=== PATIENT | male | born 1965 | race Caucasian/White ===

== ENCOUNTER 2017-03-25 14:07 | Emergency (ER) | payer MEDICARE, OTHER ==
[~2017-03-25] VITALS: Ht 172.7 cm; Wt 65.0 kg
[~2017-03-25 14:07] MED LIST: HYDR-565 PO
[2017-03-25] MEDS ORDERED: morphine IR (immed. release) 30mg tablet PO PRN (14:30)
[2017-03-25] MEDS ORDERED: diazepam 5mg tablet PO ONE (14:55)
[2017-03-25] MEDS ORDERED: ketorolac trometh inj. 60 MG/2 ML VIAL IM ONE (14:55)
[2017-03-25] MEDS ORDERED: NAPR-56 PO (15:04)
[2017-03-25] MEDS ORDERED: METH-360 PO (15:04)
[2017-03-25 15:23] VITALS: BP 191/121
== END 2017-03-25 15:27 | disposition home or self-care (01) ==
LOC: ER 14:08
DX: S20.212A Contusion of left front wall of thorax, initial encounter (principal); G89.29 Other chronic pain; F12.10 Cannabis abuse, uncomplicated; Z88.8 Allergy status to other drugs, medicaments and biological substances; W01.0XXA Fall on same level from slipping, tripping and stumbling without subsequent striking against object, initial encounter; Y93.89 Activity, other specified; Y92.89 Other specified places as the place of occurrence of the external cause; Y99.8 Other external cause status
CPT/HCPCS: 71046; 96372; 99284; J1885